=== PATIENT | female | born 1960 | race Caucasian/White ===

== ENCOUNTER 2018-09-28 09:37 | Outpatient (CLI) | payer OTHER ==
[2018-09-28 10:48] LABS: BASOPHILS # (AUTO) 0.1 K/uL (0.0-0.2); BASOPHILS % (AUTO) 1.1 % (0.0-2.0); EOSINOPHILS # (AUTO) 0.2 K/uL (0.0-0.4); EOSINOPHILS % (AUTO) 2.2 % (0.0-4.0); HEMOGLOBIN 14.7 g/dL (12.0-16.0); LYMPHOCYTES # (AUTO) 2.3 K/uL (1.0-5.5); LYMPHOCYTES % (AUTO) 31.8 % (20.5-51.5); MEAN CORPUSCULAR HEMOGLOBIN 29 pg (27-31); MEAN CORPUSCULAR HGB CONC 33 % (32-36); MEAN CORPUSCULAR VOLUME 88 fL (79.0-98.0); MONOCYTES # (AUTO) 0.4 K/uL (0.0-1.0); MONOCYTES % (AUTO) 6.1 % (1.7-9.3); NEUTROPHILS # (AUTO) 4.2 K/uL (1.8-7.7); NEUTROPHILS % (AUTO) 58.8 % (40.0-70.0); PLATELET COUNT (AUTO) 256 K/uL (130-430); RED BLOOD CELL COUNT(AUTO) 4.99 MIL/uL (4.2-6.2); WHITE BLOOD COUNT (AUTO) 7.2 K/uL (4.8-10.8)
[2018-09-28 11:14] LABS: ALBUMIN 3.6 g/dL (3.4-4.8); CALCIUM 9.4 mg/dL (8.4-11.0); CREATININE 0.8 mg/dL (0.55-1.30); THYROID STIMULATING HORMONE 0.62 uIu/mL (0.34-4.82); TOTAL BILIRUBIN 0.5 mg/dL (0.0-1.0)
== END 2018-09-28 21:04 | disposition home or self-care (01) ==
LOC: SLB 09:37
PROVIDERS: ATTEND Internal Medicine
DX: Z00.00 Encounter for general adult medical examination without abnormal findings (principal)
CPT/HCPCS: 36415; 80053; 80061; 84443-TC; 85025

== ENCOUNTER 2019-05-03 16:18 | Outpatient (CLI) | payer OTHER | END 2019-05-03 21:45 | disposition home or self-care (01) | LOC: SMA 16:18 | PROVIDERS: ATTEND Internal Medicine | DX: Z12.31 Encounter for screening mammogram for malignant neoplasm of breast (principal) | CPT/HCPCS: 77067 ==

== ENCOUNTER 2019-05-07 10:47 | Outpatient (CLI) | payer OTHER | END 2019-05-07 21:30 | disposition home or self-care (01) | LOC: SLB 10:47 | PROVIDERS: ATTEND Internal Medicine | DX: E66.9 Obesity, unspecified (principal); E78.5 Hyperlipidemia, unspecified | CPT/HCPCS: 82272 ==

== ENCOUNTER 2019-10-01 08:39 | Outpatient (CLI) | payer OTHER ==
[2019-10-01 09:34] LABS: CHOLESTEROL 241 mg/dL (<200); HDL CHOLESTEROL 47 mg/dL (>55); LDL CHOLESTEROL 164 mg/dL (<100); TRIGLYCERIDES 100 mg/dL (30-150)
== END 2019-10-01 20:51 | disposition home or self-care (01) ==
LOC: SLB 08:39
PROVIDERS: ATTEND Internal Medicine
DX: E66.9 Obesity, unspecified (principal); E78.5 Hyperlipidemia, unspecified
CPT/HCPCS: 36415; 80061

== ENCOUNTER 2020-03-31 08:35 | Outpatient (CLI) | payer OTHER ==
[2020-03-31 10:48] LABS: ALBUMIN 3.6 g/dL (3.4-4.8); CALCIUM 8.9 mg/dL (8.4-11.0); CREATININE 0.83 mg/dL (0.55-1.30); POTASSIUM 3.9 mmol/L (3.5-5.1); THYROID STIMULATING HORMONE 1.06 uIu/mL (0.36-3.74); TOTAL BILIRUBIN 0.6 mg/dL (0.0-1.0)
== END 2020-03-31 20:00 | disposition home or self-care (01) ==
LOC: SLB 08:35
PROVIDERS: ATTEND Internal Medicine
DX: E78.5 Hyperlipidemia, unspecified (principal); I48.91 Unspecified atrial fibrillation; J45.902 Unspecified asthma with status asthmaticus
CPT/HCPCS: 36415; 80053; 80061; 84443-TC

== ENCOUNTER → 2020-07-14 | Outpatient (CLI) | payer OTHER ==
[2020-07-14 10:27] LABS: CHOLESTEROL 235 mg/dL (<200); HDL CHOLESTEROL 50 mg/dL (>55); LDL CHOLESTEROL 171 mg/dL (<100); TRIGLYCERIDES 152 mg/dL (30-150)
== END | disposition home or self-care (01) ==
LOC: SLB 09:29
PROVIDERS: ATTEND Internal Medicine
DX: E78.5 Hyperlipidemia, unspecified (principal)
CPT/HCPCS: 36415; 80061

== ENCOUNTER 2020-09-12 13:05 | Outpatient (CLI) | payer OTHER | END 2020-09-12 20:33 | disposition home or self-care (01) | LOC: SUS 13:05 | PROVIDERS: ATTEND Internal Medicine | DX: Z12.31 Encounter for screening mammogram for malignant neoplasm of breast (principal) | CPT/HCPCS: 77067 ==

== ENCOUNTER 2020-09-27 08:19 | Outpatient (CLI) | payer OTHER | END 2020-09-27 20:32 | disposition home or self-care (01) | LOC: SUS 08:19 | PROVIDERS: ATTEND Internal Medicine | DX: K76.89 Other specified diseases of liver (principal); R10.10 Upper abdominal pain, unspecified | CPT/HCPCS: 76700-TC ==

== ENCOUNTER 2021-01-09 08:13 | Outpatient (CLI) | payer OTHER ==
[2021-01-09 09:15] LABS: ALBUMIN 3.4 g/dL (3.4-4.8); CALCIUM 8.9 mg/dL (8.4-11.0); CREATININE 0.98 mg/dL (0.55-1.30); POTASSIUM 3.8 mmol/L (3.5-5.1); THYROID STIMULATING HORMONE 1.36 uIu/mL (0.36-3.74); TOTAL BILIRUBIN 0.5 mg/dL (0.0-1.0)
== END 2021-01-09 20:12 | disposition home or self-care (01) ==
LOC: SLB 08:13
PROVIDERS: ATTEND Internal Medicine
DX: R10.9 Unspecified abdominal pain (principal)
CPT/HCPCS: 36415; 80053; 80061; 82150; 83690; 84443

== ENCOUNTER 2021-01-26 11:45 | Outpatient (CLI) | payer OTHER | END 2021-01-26 14:00 | disposition home or self-care (01) | LOC: SLB 11:45 | PROVIDERS: ATTEND Internal Medicine | DX: E78.5 Hyperlipidemia, unspecified (principal) | CPT/HCPCS: 82272 ==

== ENCOUNTER 2021-07-25 23:24 | Inpatient (IN) | payer OTHER, SELFPAY ==
[~2021-07-25] VITALS: Ht 154.9 cm; Wt 86.0 kg
[2021-07-25 23:35] VITALS: BP_SYST 147
--- NOTE | 2021-07-25 23:54 | NUR ---
Patient ambulatory to [facility] for evaluation and treatment
[2021-07-26] MEDS ORDERED: NACL 0.9% 1,000 ML IV ONE
[2021-07-26] MEDS ORDERED: ASPIRIN 325 MG TABLET PO ONE
[2021-07-26] MEDS ORDERED: dilTIAZem HCL IVP 5 MG/ML VIAL IVP ONE
--- NOTE | 2021-07-26 | NUR ---
61 YR OLD FEMALE WITH COMPLAINT OF HEART PALPITATIONS FOR A FEW HOURS. PT STATES SHE TOOK CARDIZEM THAT SHE HAS PRESCRIBED EARLIER TODAY BUT SHE BECAME ANXIOUS AND CAN FEEL HER HEART BEATING FAST. PT PLACED ON LEATHER TOGGLER AND IN GOWN. AT THE BEDSIDE.
[2021-07-26 01:35] LABS: ANION GAP 12 (5-15); CALCIUM 9.1 mg/dL (8.4-11.0); CHLORIDE 106 mmol/L (98-107); CREATININE 0.87 mg/dL (0.55-1.30); GLUCOSE 132 mg/dL (70-99); POTASSIUM 3.6 mmol/L (3.5-5.1); SODIUM SERUM 143 mmol/L (136-145); UREA NITROGEN, BLOOD 14 mg/dL (8-21)
[2021-07-26 01:43] LABS: GFR AFRICAN AMERICAN 85 mL/min (>90)
[2021-07-26 01:49] LABS: ALANINE AMINOTRANSFERASE 32 U/L (12-78); ALBUMIN 3.6 g/dL (3.4-4.8); ASPARTATE AMINOTRANSFERASE 11 U/L (10-37); THYROID STIMULATING HORMONE 1.97 uIu/mL (0.36-3.74); TOTAL BILIRUBIN 0.2 mg/dL (0.0-1.0)
[2021-07-26 02:11] LABS: HEMATOCRIT 43.9 % (36-48); HEMOGLOBIN 14.7 g/dL (12.0-16.0); MEAN CORPUSCULAR HEMOGLOBIN 29 pg (27-31); MEAN CORPUSCULAR HGB CONC 34 % (32-36); MEAN CORPUSCULAR VOLUME 86 fL (79.0-98.0); PLATELET COUNT (AUTO) 244 K/uL (130-430); RED CELL DISTRIBUTION WIDTH 13.1 % (9.0-15.0)
[2021-07-26 02:12] LABS: BASOPHILS # (AUTO) 0.1 K/uL (0.0-0.2); EOSINOPHILS # (AUTO) 0.3 K/uL (0.0-0.4); EOSINOPHILS % (AUTO) 3.6 % (0.0-4.0); LYMPHOCYTES % (AUTO) 21.9 % (20.5-51.5); MONOCYTES # (AUTO) 0.8 K/uL (0.0-1.0); MONOCYTES % (AUTO) 8.5 % (1.7-9.3); NEUTROPHILS # (AUTO) 5.9 K/uL (1.8-7.7)
--- NOTE | 2021-07-26 03:42 | NUR ---
SALENA SWAB OBTAINED AND SENT TO LAB
[2021-07-26] MEDS ORDERED: LevALBUTEROL HCL 1.25 MG/0.5 ML *CONC.* VIAL.NEB (XOPENEX CONC.) INH ONE (05:45)
[2021-07-26] MEDS ORDERED: IPRATROPIUM/ALBUTEROL SULFATE 3 ML AMPUL.NEB (DUONEB) INH ONE (05:45)
--- NOTE | 2021-07-26 05:49 | NUR ---
RT AT THE BEDSIDE FOR BREATHING TREATMENT
--- NOTE | 2021-07-26 06:02 | NUR ---
PT HEART RATE AT 159, CARDIZEM TITRATED TO 15 MG/HR
--- NOTE | 2021-07-26 07:11 | NUR ---
PT CARDIZEM TITRATED TO 12MG/HR. PT VITAL SIGNS STABLE BLOOD PRESSURE 109/59, HR 81. REPORT GIVEN TO KINDRA QUIJANO. ALL QUESTIONS ANSWERED.
[2021-07-26 07:38] LABS: BASOPHILS # (AUTO) 0.1 K/uL (0.0-0.2); EOSINOPHILS # (AUTO) 0.1 K/uL (0.0-0.4); EOSINOPHILS % (AUTO) 1.6 % (0.0-4.0); HEMATOCRIT 46.7 % (36-48); HEMOGLOBIN 15.8 g/dL (12.0-16.0); LYMPHOCYTES # (AUTO) 1.6 K/uL (1.0-5.5); MEAN CORPUSCULAR HEMOGLOBIN 29 pg (27-31); MEAN CORPUSCULAR HGB CONC 34 % (32-36); MEAN CORPUSCULAR VOLUME 87 fL (79.0-98.0); MONOCYTES # (AUTO) 0.5 K/uL (0.0-1.0); MONOCYTES % (AUTO) 6.4 % (1.7-9.3); NEUTROPHILS # (AUTO) 4.8 K/uL (1.8-7.7); PLATELET COUNT (AUTO) 259 K/uL (130-430); RED BLOOD CELL COUNT(AUTO) 5.37 MIL/uL (4.2-6.2); RED CELL DISTRIBUTION WIDTH 13.3 % (9.0-15.0); WHITE BLOOD COUNT (AUTO) 7.1 K/uL (4.8-10.8)
[2021-07-26 07:59] LABS: CALCIUM 9.1 mg/dL (8.4-11.0); CREATININE 0.76 mg/dL (0.55-1.30); POTASSIUM 3.5 mmol/L (3.5-5.1)
[2021-07-26 08:02] LABS: ALBUMIN 3.6 g/dL (3.4-4.8); TOTAL BILIRUBIN 0.2 mg/dL (0.0-1.0)
--- NOTE | 2021-07-26 08:15 | NUR ---
Assessed patient at bedside. Patient alert, awake and oriented. She denies any pain or discomfort. Vital signs stable. Titrated cardizem driop from 12mg to 10.
--- NOTE | 2021-07-26 08:45 | NUR ---
Dr Govea calls back. I updated MD with laboratory works as well as patient's latest vital signs. Currently Cardizem is running at 8mg/hour. Orders to move to Telemetry noted.
[2021-07-26] MEDS ORDERED: APIX5TAB4 PO (09:22)
[2021-07-26] MEDS ORDERED: DILT120C89 PO (09:22)
--- NOTE | 2021-07-26 09:34 | NUR ---
CARDIZEM DRIP DISCONTINUED. PATIENT'S VITAL SIGNS STABLE. SHE DENIES ANY PAIN OR DISCOMFORT.
--- NOTE | 2021-07-26 10:00 | NUR ---
Hand off report given to Telemetry nurse. Transported via gurney with stable vitals sign and on continuous conveyor monitor. Admitted to RM 30 A.
[2021-07-26 11:21] VITALS: BP_SYST 128
[2021-07-26 11:38] VITALS: BP_SYST 128
[2021-07-26] MEDS ORDERED: ACETAMINOPHEN 325 MG TABLET PO PRN (12:15)
[2021-07-26] MEDS ORDERED: FAMOTIDINE 20 MG TABLET PO ONE (12:30)
[2021-07-26] MEDS ORDERED: APIXABAN 2.5 MG TABLET PO ONE (12:30)
[2021-07-26] MEDS ORDERED: DILTIAZEM HCL 120 MG CAP.SR.24H PO ONE (12:30)
--- NOTE | 2021-07-26 12:58 | NUR ---
PT REFUSES 1230 ELIQUIS DOSE. PT STATED I ALREADY MISSED THE AM DOSE, I WILL JUST TAKE THE PM DOSE.
--- NOTE | 2021-07-26 12:59 | NUR ---
DR. DA SILVA IN THE UNIT TO SEE THE PT. PT STAYING FOR 24HR OBSERVATION AND POSSIBLE DISCHARGE TOMORROW IF NO AFIB RVR EPISODE.
[2021-07-26] MEDS: levalbuterol HCL 0.63 MG/3 ML VIAL.NEB INH SCH ×4 (15:30→23:40)
[2021-07-26 19:00] VITALS: BP_SYST 135
--- NOTE | 2021-07-26 19:15 | NUR ---
change of shift.pt.presents quiescent affect;calm,resting.family present.no c/o pain,nausea.pt.capable to reposition self. pt.capable to reposition self/ambulate assisted.pt.presents iv access location lt.antecubital:iv lock.general status,respiratory status stable;unlabored@room air.call light/telephone w/in access of the pt.
[2021-07-26 20:00] VITALS: BP_SYST 135
--- NOTE | 2021-07-26 20:00 | NUR ---
pt.assessed.v/s assessed values wnl.note hr,bp status.no c/o pain,nausea.i have apprised the pt.that snacks/beverages are available w/in the shift.no requests posited@this hour.pt.presents snacks from home.pt.capable to reposition self.call light/ telephone w/in access of the pt.
[2021-07-26] MEDS: APIXABAN 2.5 MG TABLET PO SCH (20:34)
--- NOTE | 2021-07-26 21:00 | NUR ---
2100p medications administered.pt.capable to ingest the pom medications w/out difficulty.no c/o pain,nausea. no requests posited@this hour.call light/telephone w/in access of the pt.
--- NOTE | 2021-07-26 22:00 | NUR ---
pt.assessed.pt.presents quiescent affect;calm,resting.no c/o pain,nausea.no requests posited@this hour.pt.capable to reposition self.call light/telephone w/in access of the pt.
[2021-07-27] VITALS: BP_SYST 132
--- NOTE | 2021-07-27 | NUR ---
pt.assessed.v/s assessed values wnl.no c/o pain,nausea.no requests posited@this hour.pt.capable to reposition self. call light/telephone w/in access of the pt.
--- NOTE | 2021-07-27 02:00 | NUR ---
pt.assessed.pt.presents quiescent affect;calm,somnolent.per flacc pain mgx pt.absent facial grimaces/body posturing.pt.capable to reposition self.call light/telephone w/in access of the pt.
--- NOTE | 2021-07-27 04:00 | NUR ---
pt.assessed.pt.presents quiescent affect;calm,somnolent.per flacc pain mgx pt.absent facial grimaces/body posturing. pt.capable to reposition self.call light/telephone w/in access of the pt.
[2021-07-27 05:00] VITALS: BP_SYST 150
--- NOTE | 2021-07-27 06:00 | NUR ---
pt.assessed.pt.presents quiescent affect calm,resting.no c/o pain,nausea.no requests posited@this hour.pt.capable to reposition self.call light/telephone w/in access of the pt.
--- NOTE | 2021-07-27 08:00 | NUR ---
PATIENT AAOX 4. VITALS SIGNS STABLE. AFEBRILE LUNGS BILATERALLY CLEAR. ABDOMEN SOFT AND NON DISTENDED. HAS IV ACCESS ON THE LEFT AC #20 SALINE LOCKED. PATENT/DRY. WALKS WITH WALKER TO THE BATHROOM WITH ASSISTS. CALL LIGHTS WITHIN REACH. BED LOW POSITION, ALARMED AND LOCKED WILL CONTINUE TO MONITOR.
[2021-07-27] MEDS: APIXABAN 2.5 MG TABLET PO SCH (08:22)
[2021-07-27 08:38] VITALS: BP_SYST 142
[2021-07-27] MEDS ORDERED: FAMOTIDINE 20 MG TABLET PO SCH (09:00)
[2021-07-27] MEDS ORDERED: DILTIAZEM HCL 120 MG CAP.SR.24H PO SCH (09:00)
--- NOTE | 2021-07-27 09:00 | NUR ---
DUE MEDS GIVEN.
--- NOTE | 2021-07-27 10:00 | NUR ---
GOES TO THE BATHROOM HAD BM X 1. VERBALIZED WANTS TO GO HOME. AWAITING FOR MITALI SMITH TO CALL FOR POSSIBLE DISCHARGE TODAY.
[2021-07-27 10:44] VITALS: BP_SYST 142
--- NOTE | 2021-07-27 11:00 | NUR ---
WILL FOLLOW UP WITH PCP ON . AND INFORMED PATIENT TO CALL THURSDAY FOR TIME SCHEDULE. ON Thursday07/31/21
--- NOTE | 2021-07-27 11:00 | NUR ---
DISCHARGE INSTRUCTION GIVEN TO THE PATIENT TO CONTINUE PRESCRIBED MEDICATION AND OTHER PREVIOUS MEDS TAKEN AT HOME. CONTINUE ELIQUIZ 5 MG PO BID. AND CARDIZEM 180 MG PO DAILY INSTEAD OF 120 MG PO. DISCHARGE SUMMARY SIGNED AND UNDERSTAND THE TEACHING. [facility] I D BAND REMOVED. IV ACCESS REMOVED.
--- NOTE | 2021-07-27 11:50 | NUR ---
PATIENT LEFT IN STABLE CONDITION, REFUSED TO BE WHEELED VIA WHEELCHAIR AND PREFERS TO WALK. SON PICK HER UP.
== END 2021-07-27 11:50 | disposition home or self-care (01) | DRG 309 ==
LOC: SED 23:24 → SIC 07-26 04:21 → STU 07-26 08:46
PROVIDERS: ADMIT Internal Medicine; ATTEND Internal Medicine
DX: I48.0 Paroxysmal atrial fibrillation (principal); J45.901 Unspecified asthma with (acute) exacerbation; E78.5 Hyperlipidemia, unspecified; Z20.822 Contact with and (suspected) exposure to COVID-19; I10 Essential (primary) hypertension; Z79.01 Long term (current) use of anticoagulants; Z82.49 Family history of ischemic heart disease and other diseases of the circulatory system; Z79.899 Other long term (current) drug therapy
CPT/HCPCS: 36415; 71045; 80053; 83735; 84443; 84484; 85025; 93005; 93306; 94640; G0378; J3490; J7612; J7614

== ENCOUNTER 2021-09-16 14:52 | Outpatient (CLI) | payer OTHER ==
[~2021-09-16 14:52] MED LIST: APIX5TAB4 PO; DILT120C89 PO
== END 2021-09-16 20:15 | disposition home or self-care (01) ==
LOC: SMA 14:52
PROVIDERS: ATTEND Internal Medicine
DX: Z12.31 Encounter for screening mammogram for malignant neoplasm of breast (principal)
CPT/HCPCS: 77067

== ENCOUNTER 2021-09-30 09:10 | Emergency (ER) | payer OTHER ==
[~2021-09-30] VITALS: Ht 162.6 cm; Wt 81.6 kg
--- NOTE | 2021-09-30 09:13 | NUR ---
Patient to ER bed 5 to gown for evaluation. Side rails up. Report given to AMADA KINNEY.
[2021-09-30] MEDS ORDERED: dilTIAZem HCL IVP 5 MG/ML VIAL IVP ONE (10:00)
--- NOTE | 2021-09-30 10:08 | NUR ---
pt presents to ed ambulatory with c/o palpitations. Pt hx of afib currently on blood thinners. AOx4 GCS15. 20G IV initiated in R AC. ED physician at bedside assessing pt. Will continue to monitor pt.
[2021-09-30 10:15] LABS: BASOPHILS # (AUTO) 0.1 K/uL (0.0-0.2); EOSINOPHILS # (AUTO) 0.2 K/uL (0.0-0.4); EOSINOPHILS % (AUTO) 2.3 % (0.0-4.0); HEMATOCRIT 46.8 % (36-48); HEMOGLOBIN 15.9 g/dL (12.0-16.0); LYMPHOCYTES # (AUTO) 2.9 K/uL (1.0-5.5); LYMPHOCYTES % (AUTO) 27.9 % (20.5-51.5); MEAN CORPUSCULAR HEMOGLOBIN 30 pg (27-31); MEAN CORPUSCULAR HGB CONC 34 % (32-36); MEAN CORPUSCULAR VOLUME 87 fL (79.0-98.0); MONOCYTES # (AUTO) 0.5 K/uL (0.0-1.0); MONOCYTES % (AUTO) 4.9 % (1.7-9.3); NEUTROPHILS # (AUTO) 6.7 K/uL (1.8-7.7); NEUTROPHILS % (AUTO) 63.9 % (40.0-70.0); PLATELET COUNT (AUTO) 288 K/uL (130-430); RED BLOOD CELL COUNT(AUTO) 5.37 MIL/uL (4.2-6.2); RED CELL DISTRIBUTION WIDTH 13.1 % (9.0-15.0); WHITE BLOOD COUNT (AUTO) 10.5 K/uL (4.8-10.8)
[2021-09-30 10:26] LABS: PROTHROMBIN TIME 10.4 SECS (9.5-12.5)
[2021-09-30 10:29] LABS: ANION GAP 10 (5-15); CALCIUM 8.4 mg/dL (8.4-11.0); CHLORIDE 106 mmol/L (98-107); CREATININE 0.99 mg/dL (0.55-1.30); GLUCOSE 113 mg/dL (70-99); POTASSIUM 3.8 mmol/L (3.5-5.1); SODIUM SERUM 142 mmol/L (136-145); UREA NITROGEN, BLOOD 15 mg/dL (8-21)
[2021-09-30] MEDS ORDERED: NS 500 ML IV ONE (10:30)
[2021-09-30 10:32] LABS: GFR AFRICAN AMERICAN 73 mL/min (>90)
[2021-09-30 10:33] LABS: ALANINE AMINOTRANSFERASE 94 U/L (12-78); ALBUMIN 3.6 g/dL (3.4-4.8); ASPARTATE AMINOTRANSFERASE 30 U/L (10-37); TOTAL BILIRUBIN 0.4 mg/dL (0.0-1.0)
[2021-09-30 11:04] LABS: BILIRUBIN,URINE NEGATIVE (NEGATIVE); BLOOD, URINE NEGATIVE (NEGATIVE); CLARITY/URINE CLEAR (CLEAR); COLOR,URINE YELLOW (YELLOW); GLUCOSE,URINE NEGATIVE (NEGATIVE); KETONES,URINE NEGATIVE (NEGATIVE); LEUKOCYTE ESTERASE ,URINE 1+ (NEGATIVE); NITRITE, URINE NEGATIVE (NEGATIVE); PROTEIN URINE NEGATIVE (NEGATIVE); UROBILINOGEN,URINE 0.2 (0.2-1.0)
[2021-09-30 11:19] LABS: BACTERIA,URINE FEW /HPF (None Seen); RBC,URINE 0-3 /HPF (0-3)
[2021-09-30 11:20] LABS: MUCUS,URINE 1+ /LPF (None Seen)
== END 2021-09-30 16:45 | disposition home or self-care (01) ==
LOC: SED 09:10
DX: I48.20 Chronic atrial fibrillation, unspecified (principal); Z79.899 Other long term (current) drug therapy
CPT/HCPCS: 36415; 71045; 80053; 81000; 83880; 84443; 84484; 85025; 85610-TC; 87086; 93005; 99284; 99285

== ENCOUNTER 2021-10-26 09:48 | Outpatient (CLI) | payer OTHER | END 2021-10-26 20:35 | disposition home or self-care (01) | LOC: SLB 09:48 | PROVIDERS: ATTEND Internal Medicine | DX: Z12.11 Encounter for screening for malignant neoplasm of colon (principal) | CPT/HCPCS: 82272 ==

== ENCOUNTER 2022-03-01 09:30 | Outpatient (CLI) | payer OTHER ==
[2022-03-01 10:42] LABS: BASOPHILS % (AUTO) 0.7 % (0.0-2.0); EOSINOPHILS # (AUTO) 0.3 K/uL (0.0-0.4); EOSINOPHILS % (AUTO) 3.8 % (0.0-4.0); LYMPHOCYTES # (AUTO) 2.1 K/uL (1.0-5.5); LYMPHOCYTES % (AUTO) 29.7 % (20.5-51.5); MEAN CORPUSCULAR HEMOGLOBIN 30 pg (27-31); MEAN CORPUSCULAR HGB CONC 34 % (32-36); MEAN CORPUSCULAR VOLUME 87 fL (79.0-98.0); MONOCYTES # (AUTO) 0.5 K/uL (0.0-1.0); MONOCYTES % (AUTO) 6.6 % (1.7-9.3); NEUTROPHILS # (AUTO) 4.2 K/uL (1.8-7.7); NEUTROPHILS % (AUTO) 59.2 % (40.0-70.0); PLATELET COUNT (AUTO) 239 K/uL (130-430); RED BLOOD CELL COUNT(AUTO) 5.06 MIL/uL (4.2-6.2); RED CELL DISTRIBUTION WIDTH 13.1 % (9.0-15.0); WHITE BLOOD COUNT (AUTO) 7.1 K/uL (4.8-10.8)
[2022-03-01 10:57] LABS: ALBUMIN 3.8 g/dL (3.4-4.8); CALCIUM 8.9 mg/dL (8.4-11.0); CREATININE 0.88 mg/dL (0.55-1.30); FREE T4 (FREE THYROXINE) 1.2 ng/dl (0.8-1.5); THYROID STIMULATING HORMONE 1.28 uIu/mL (0.36-3.74); TOTAL BILIRUBIN 0.6 mg/dL (0.0-1.0)
[2022-03-01 11:26] LABS: BILIRUBIN,URINE NEGATIVE (NEGATIVE); BLOOD, URINE NEGATIVE (NEGATIVE); CLARITY/URINE CLEAR (CLEAR); COLOR,URINE YELLOW (YELLOW); GLUCOSE,URINE NEGATIVE (NEGATIVE); KETONES,URINE NEGATIVE (NEGATIVE); LEUKOCYTE ESTERASE ,URINE NEGATIVE (NEGATIVE); NITRITE, URINE NEGATIVE (NEGATIVE); PROTEIN URINE NEGATIVE (NEGATIVE); UROBILINOGEN,URINE 0.2 (0.2-1.0)
== END 2022-03-01 17:55 | disposition home or self-care (01) ==
LOC: SLB 09:30
PROVIDERS: ATTEND Internal Medicine
DX: I10 Essential (primary) hypertension (principal); K31.9 Disease of stomach and duodenum, unspecified; R10.13 Epigastric pain; I48.91 Unspecified atrial fibrillation; R51.9 Headache, unspecified; J30.9 Allergic rhinitis, unspecified
CPT/HCPCS: 36415; 80053; 80061; 81003; 84439; 84443; 85025; 87086

== ENCOUNTER 2022-07-10 05:50 | Day surgery (SDC) | payer OTHER ==
[~2022-07-10] VITALS: Ht 154.9 cm; Wt 85.3 kg
[2022-07-10] MEDS ORDERED: MIDAZOLAM HCL 5 MG/5 ML VIAL ONE (07:42)
[2022-07-10] MEDS ORDERED: MEPERIDINE 50 MG/ML VIAL ONE (07:42)
[2022-07-10 10:51] VITALS: BP_SYST 133
== END 2022-07-10 10:08 | disposition home or self-care (01) ==
LOC: SDS 05:50 → SMU 05:50 → SDS 10:08
PROVIDERS: ATTEND Internal Medicine Gastroenterology
DX: K30 Functional dyspepsia (principal); K31.7 Polyp of stomach and duodenum; K29.50 Unspecified chronic gastritis without bleeding; R14.0 Abdominal distension (gaseous); J45.909 Unspecified asthma, uncomplicated; I48.91 Unspecified atrial fibrillation; Z79.01 Long term (current) use of anticoagulants; Z79.899 Other long term (current) drug therapy; Z20.822 Contact with and (suspected) exposure to COVID-19
CPT/HCPCS: 43239; 87426; 87081; 36415; 88305; 88312; 88313; 99152; G0378; J2250; J2175

== ENCOUNTER 2022-07-13 08:39 | Outpatient (CLI) | payer OTHER ==
[2022-07-13 09:11] LABS: BASOPHILS # (AUTO) 0.1 K/uL (0.0-0.2); BASOPHILS % (AUTO) 1.2 % (0.0-2.0); EOSINOPHILS # (AUTO) 0.3 K/uL (0.0-0.4); EOSINOPHILS % (AUTO) 3.8 % (0.0-4.0); HEMATOCRIT 43.6 % (36-48); HEMOGLOBIN 14.5 g/dL (12.0-16.0); LYMPHOCYTES # (AUTO) 1.8 K/uL (1.0-5.5); LYMPHOCYTES % (AUTO) 27.5 % (20.5-51.5); MEAN CORPUSCULAR HEMOGLOBIN 29 pg (27-31); MEAN CORPUSCULAR HGB CONC 33 % (32-36); MEAN CORPUSCULAR VOLUME 88 fL (79.0-98.0); MONOCYTES # (AUTO) 0.4 K/uL (0.0-1.0); MONOCYTES % (AUTO) 6.7 % (1.7-9.3); NEUTROPHILS % (AUTO) 60.8 % (40.0-70.0); PLATELET COUNT (AUTO) 254 K/uL (130-430); RED BLOOD CELL COUNT(AUTO) 4.94 MIL/uL (4.2-6.2); RED CELL DISTRIBUTION WIDTH 13.3 % (9.0-15.0); WHITE BLOOD COUNT (AUTO) 6.6 K/uL (4.8-10.8)
[2022-07-13 09:47] LABS: ALBUMIN 3.5 g/dL (3.4-4.8); C-REACTIVE PROTEIN QUANT 0.4 mg/dL (0-0.5); CREATININE 0.97 mg/dL (0.55-1.30)
[2022-07-13 10:04] LABS: TOTAL BILIRUBIN 0.7 mg/dL (0.0-1.0)
== END 2022-07-13 20:40 | disposition home or self-care (01) ==
LOC: SLB 08:39
DX: R10.84 Generalized abdominal pain (principal); R14.0 Abdominal distension (gaseous); Z80.0 Family history of malignant neoplasm of digestive organs
CPT/HCPCS: 36415; 80053; 83690; 85025; 86140

== ENCOUNTER 2022-09-06 08:52 | Outpatient (CLI) | payer OTHER ==
[2022-09-06 09:58] LABS: BASOPHILS # (AUTO) 0.1 K/uL (0.0-0.2); BASOPHILS % (AUTO) 1.3 % (0.0-2.0); BILIRUBIN,URINE NEGATIVE (NEGATIVE); BLOOD, URINE NEGATIVE (NEGATIVE); CLARITY/URINE CLEAR (CLEAR); COLOR,URINE YELLOW (YELLOW); EOSINOPHILS # (AUTO) 0.4 K/uL (0.0-0.4); GLUCOSE,URINE NEGATIVE (NEGATIVE); HEMATOCRIT 45.7 % (36-48); HEMOGLOBIN 15.1 g/dL (12.0-16.0); KETONES,URINE NEGATIVE (NEGATIVE); LEUKOCYTE ESTERASE ,URINE TRACE (NEGATIVE); LYMPHOCYTES # (AUTO) 2.2 K/uL (1.0-5.5); LYMPHOCYTES % (AUTO) 31.4 % (20.5-51.5); MEAN CORPUSCULAR HEMOGLOBIN 29 pg (27-31); MEAN CORPUSCULAR HGB CONC 33 % (32-36); MEAN CORPUSCULAR VOLUME 87 fL (79.0-98.0); MONOCYTES # (AUTO) 0.5 K/uL (0.0-1.0); MONOCYTES % (AUTO) 6.5 % (1.7-9.3); NEUTROPHILS # (AUTO) 3.8 K/uL (1.8-7.7); NEUTROPHILS % (AUTO) 54.8 % (40.0-70.0); NITRITE, URINE NEGATIVE (NEGATIVE); PLATELET COUNT (AUTO) 257 K/uL (130-430); PROTEIN URINE NEGATIVE (NEGATIVE); RED BLOOD CELL COUNT(AUTO) 5.25 MIL/uL (4.2-6.2); RED CELL DISTRIBUTION WIDTH 13.1 % (9.0-15.0); UROBILINOGEN,URINE 0.2 (0.2-1.0)
[2022-09-06 10:26] LABS: ALBUMIN 3.7 g/dL (3.4-4.8); C-REACTIVE PROTEIN QUANT 0.5 mg/dL (0-0.5); CALCIUM 9.2 mg/dL (8.4-11.0); CREATININE 0.86 mg/dL (0.55-1.30); THYROID STIMULATING HORMONE 1.25 uIu/mL (0.34-4.82); TOTAL BILIRUBIN 0.6 mg/dL (0.0-1.0)
== END 2022-09-06 19:05 | disposition home or self-care (01) ==
LOC: SLB 08:52
DX: Z01.818 Encounter for other preprocedural examination (principal); K30 Functional dyspepsia; K76.0 Fatty (change of) liver, not elsewhere classified
CPT/HCPCS: 36415; 80053; 81003; 82306; 84443; 85025; 86140; 87086

== ENCOUNTER 2022-10-14 05:40 | Day surgery (SDC) | payer OTHER ==
[~2022-10-14] VITALS: Ht 180.3 cm; Wt 85.7 kg
[2022-10-14] MEDS ORDERED: MIDAZOLAM HCL 5 MG/5 ML VIAL ONE ×2 (06:09→07:39)
[2022-10-14] MEDS ORDERED: MEPERIDINE 100 MG INJ. 100 MG/ML VIAL ONE (06:09)
[2022-10-14] MEDS ORDERED: SIMETHICONE 40 MG/0.6 ML ML ONE (06:09)
[2022-10-14 11:17] VITALS: BP_SYST 117
== END 2022-10-14 09:45 | disposition home or self-care (01) ==
LOC: SDS 05:40 → SMU 05:40 → SDS 09:45
PROVIDERS: ATTEND Internal Medicine Gastroenterology
DX: R19.4 Change in bowel habit (principal); D12.0 Benign neoplasm of cecum; K64.8 Other hemorrhoids; J45.909 Unspecified asthma, uncomplicated; I48.91 Unspecified atrial fibrillation; Z79.01 Long term (current) use of anticoagulants; Z79.899 Other long term (current) drug therapy
CPT/HCPCS: 45385; 88305; 99152; 99153; G0378; J2250; J2175

== ENCOUNTER 2022-11-06 16:02 | Outpatient (CLI) | payer OTHER | END 2022-11-06 18:13 | disposition home or self-care (01) | LOC: SMA 16:02 | PROVIDERS: ATTEND Internal Medicine | DX: Z12.31 Encounter for screening mammogram for malignant neoplasm of breast (principal) | CPT/HCPCS: 77067 ==

== ENCOUNTER 2023-08-01 07:55 | Outpatient (CLI) | payer OTHER ==
[2023-08-01 09:15] LABS: BILIRUBIN,URINE NEGATIVE (NEGATIVE); BLOOD, URINE NEGATIVE (NEGATIVE); CLARITY/URINE CLEAR (CLEAR); COLOR,URINE YELLOW (YELLOW); GLUCOSE,URINE NEGATIVE (NEGATIVE); KETONES,URINE NEGATIVE (NEGATIVE); LEUKOCYTE ESTERASE ,URINE NEGATIVE (NEGATIVE); NITRITE, URINE NEGATIVE (NEGATIVE); PROTEIN URINE NEGATIVE (NEGATIVE); UROBILINOGEN,URINE 0.2 (0.2-1.0)
[2023-08-01 09:28] LABS: BASOPHILS # (AUTO) 0.1 K/uL (0.0-0.2); EOSINOPHILS # (AUTO) 0.3 K/uL (0.0-0.4); EOSINOPHILS % (AUTO) 4.5 % (0.0-4.0); HEMATOCRIT 44.3 % (36-48); HEMOGLOBIN 14.9 g/dL (12.0-16.0); LYMPHOCYTES # (AUTO) 2.1 K/uL (1.0-5.5); LYMPHOCYTES % (AUTO) 32.7 % (20.5-51.5); MEAN CORPUSCULAR HEMOGLOBIN 29 pg (27-31); MEAN CORPUSCULAR HGB CONC 34 % (32-36); MEAN CORPUSCULAR VOLUME 87 fL (79.0-98.0); MONOCYTES # (AUTO) 0.5 K/uL (0.0-1.0); MONOCYTES % (AUTO) 7.4 % (1.7-9.3); NEUTROPHILS # (AUTO) 3.5 K/uL (1.8-7.7); NEUTROPHILS % (AUTO) 54.4 % (40.0-70.0); PLATELET COUNT (AUTO) 246 K/uL (130-430); RED BLOOD CELL COUNT(AUTO) 5.09 MIL/uL (4.2-6.2); RED CELL DISTRIBUTION WIDTH 13.3 % (9.0-15.0); WHITE BLOOD COUNT (AUTO) 6.5 K/uL (4.8-10.8)
[2023-08-01 09:36] LABS: ALBUMIN 3.4 g/dL (3.4-4.8); CALCIUM 8.8 mg/dL (8.4-11.0); CREATININE 0.92 mg/dL (0.55-1.30); POTASSIUM 3.8 mmol/L (3.5-5.1); THYROID STIMULATING HORMONE 1.38 uIu/mL (0.34-4.82); TOTAL BILIRUBIN 0.5 mg/dL (0.0-1.0); TOTAL PROTEIN, SERUM 7.5 g/dL (6.4-8.3)
== END 2023-08-01 20:13 | disposition home or self-care (01) ==
LOC: SLB 07:55
PROVIDERS: ATTEND Internal Medicine Cardiovascular Disease
DX: I25.10 Atherosclerotic heart disease of native coronary artery without angina pectoris (principal); I10 Essential (primary) hypertension; E03.9 Hypothyroidism, unspecified; D64.9 Anemia, unspecified; E55.9 Vitamin D deficiency, unspecified
CPT/HCPCS: 80053; 80061; 81001; 81003; 84443; 85025

== ENCOUNTER 2023-11-07 10:08 | Outpatient (CLI) | payer OTHER | END 2023-11-07 19:31 | disposition home or self-care (01) | LOC: SRD 10:08 | PROVIDERS: ATTEND Internal Medicine Cardiovascular Disease | DX: M75.102 Unspecified rotator cuff tear or rupture of left shoulder, not specified as traumatic (principal) | CPT/HCPCS: 73030 ==